=== PATIENT | female | born 1955 | race Caucasian/White ===

== ENCOUNTER 2016-05-27 13:07 | Emergency (ER) | payer SELFPAY ==
--- NOTE | 2016-05-27 13:47 | DIAGNOSTIC IMAGING REPORT ---
PROCEDURE: XR CHEST 2 VIEW INDICATION: CHEST PAIN TECHNIQUE: PA and lateral views. COMPARISON: Chest 09/16/2013 FINDINGS: Lungs are clear. Heart and mediastinum are normal. Thorax is normal. IMPRESSION: 1. Negative chest.
--- NOTE | 2016-05-27 14:04 | ED NURSING NOTES ---
Clinical Report - Nurses [facility] [address] [place] [address] 05/27/2016 13:09 Patient: SOCORRO BATISTA TRIAGE Triage time 13:16 May 27 2016. Acuity: LEVEL 4. Chief Complaint: (chest pain). --13:19 Cali Doe R.N. 13:16 05/27/16. BP: 122/72. HR: 116. RR: 18. O2 saturation: 99%. Temp: 98.3 F. Pain level now 01/21. --13:19 Cali Doe R.N. Weight: 63.5 kg stated. Height/Length: 64 inches Per Patient. BMI: 24. --13:18 Cali Doe R.N. Medications None. --13:17 Cali Doe R.N. Allergies No Known Drug Allergy. --13:18 Cali Doe R.N. History Arrived by private vehicle. ( Pt reports pain to L rib cage, rt reaching into the back seat of a truck for a coffee cup. Pain is worse when she coughs). Onset. (2 days). SOCIAL HX: Heavy tobacco smoker. No alcohol use or drug use. --13:19 Cali Doe R.N. PROBLEMS: Lumbar Strain. Lower Extremity Pain. Pyelonephritis. Vomiting. Dehydration. Pneumonia. LNMP - Last Normal Menstrual Period. --13:18 Cali Doe R.N. Sepsis [RuleOut]. --13:18 Cali Doe R.N. ADDITIONAL SURGERIES: Carpal Tunnel Surgery. . Laparoscopy. Lt elbow surgery. Tonsillectomy. --13:19 Cali Doe R.N. Interventions ID band on patient. To treatment room. --13:19 Cali Doe R.N. PHYSICAL ASSESSMENT GENERAL / NEURO / PSYCH: Alert. Oriented X 4. Appears in no acute distress. HEENT: Pupils equal, round and reactive to light. No facial asymmetry noted. Mucous membranes are pink. RESPIRATORY: Respirations not labored. Chest wall tenderness. CVS: Capillary refill less than 2 seconds. Pulses within normal limits. GI / : Abdomen soft and nontender and normal bowel sounds. SKIN: Skin is warm and dry. --13:19 Cali Doe R.N. NURSING PROGRESS NOTES Oxygen administered. Monitoring of patient in place. Patient gowned. Call light placed in reach. Side rails up x 1. Bed placed in lowest position. --13:20 Cali Doe R.N. Patient ready for evaluation- PA notified. --13:22 Cali Doe R.N. EKG time: (13:37 May 27 2016). EKG was performed by a nurse. --13:37 Cali Doe R.N. 14:08 05/27/2016 Motrin PO 800 mg given. Allergies verified and confirmed 5 rights. --14:08 Cali Doe R.N. 14:08 05/27/2016 Hydrocodone-APAP (Hydrocodone-Acetaminophen) PO 5/325 mg Tablets 1 tab given. Allergies verified, confirmed 5 rights and sedative warning given. --14:08 Cali Doe R.N. DISPOSITION / DISCHARGE Departure time: 14:May 27 2016. Condition at departure: improved. No learning barriers present. Discharge instructions provided and reviewed with the patient. Reviewed medication(s) information. Patient verbalized understanding. Written instructions provided in Estonian. The patient was discharged by the physician health center assistant. She was discharged home. She left the Emergency Department ambulatory and via private vehicle. --14:17 Cali Doe R.N. 14:15 05/27/16. BP: 103/79. HR: 93. RR: 20. O2 saturation: 99%. Temp: 98.6 F. Pain level now 9/10. --14:17 Cali Doe R.N. Locked/Released at 06/01/2016 16:15 by Cali Doe R.N.
--- NOTE | 2016-05-27 14:04 | ED ORDER SUMMARY ---
..... Patient: SOCORRO BATISTA OrderSheet [facility] VisitID: [id number] [address] [place] [address] 60y, F Registration Date/Time: 05/27/2016 ORDER SHEET Weight: 63.5 kg (stated) Allergies: No Known Drug Allergy GENERAL ORDERS: Chest 2V Urgent (13:05/27/2016 EKoroleva P.A.-C) (Ack 13:30 LTapper) EKG - ER Stat (13:05/27/2016 EKoroleva P.A.-C) (Ack 13:30 LTapper) MEDICATION ORDERS: Motrin PO 800 mg (NOW) (14:03 05/27/2016 EKoroleva P.A.-C) (14:08 DBeyer R.N.) Hydrocodone-APAP PO 5/325 mg (NOW, HIGH ALERT MEDICATION) (14:05/27/2016 EKoroleva P.A.-C) (14:08 DBeyer R.N.) IV FLUIDS: ORDER SHEET NOTES: [Electronically signed by Jina JuneAAngelia-C (15:18 05/27/2016)] [Electronically signed by Cali Doe R.N. (16:15 06/01/2016)] [Electronically locked/signed by Cali Doe R.N. (16:15 06/01/2016)]
--- NOTE | 2016-05-27 14:04 | ED ORDER SUMMARY ---
..... Patient: SOCORRO BATISTA OrderSheet [facility] VisitID: [id number] [address] [place] [address] 60y, F Registration Date/Time: 05/27/2016 ORDER SHEET Weight: 63.5 kg (stated) Allergies: No Known Drug Allergy GENERAL ORDERS: Chest 2V Urgent (13:05/27/2016 EKoroleva P.A.-C) (Ack 13:30 LTapper) EKG - ER Stat (13:05/27/2016 EKoroleva P.A.-C) (Ack 13:30 LTapper) MEDICATION ORDERS: Motrin PO 800 mg (NOW) (14:03 05/27/2016 EKoroleva P.A.-C) (14:08 DBeyer R.N.) Hydrocodone-APAP PO 5/325 mg (NOW, HIGH ALERT MEDICATION) (14:05/27/2016 EKoroleva P.A.-C) (14:08 DBeyer R.N.) IV FLUIDS: ORDER SHEET NOTES: [Electronically signed by Jina JuneAAngelia-C (15:18 05/27/2016)] [Electronically signed by Cali Doe R.N. (16:15 06/01/2016)] [Electronically locked/signed by Cali Doe R.N. (16:15 06/01/2016)]
--- NOTE | 2016-05-27 14:04 | ED CLINICAL REPORT ---
Clinical Report - Physicians/Mid Levels [facility] [address] [place] [address] 05/27/2016 13:09 Patient: SOCORRO BATISTA Time Seen: 13:28 May 27 2016. Arrived- By private vehicle. Historian- patient. HISTORY OF PRESENT ILLNESS Chief Complaint: CHEST PAIN. It is described as located in the left chest area. This started 3 days. No nausea, vomiting, difficulty breathing or diaphoresis. (she reports reaching for a coffee mug to her left side, and with her left arm and sustaining immediate pain to her left side. Pain worsens with movement. No direct fall or trauma. No shortness of breath or chest. History of cardiac problems. Patient is a smoker. Does not have a regular doctor. Denies any recent illness. Denies any direct trauma to the area. Denies nausea or vomiting. Denies history of PE.). REVIEW OF SYSTEMS No chills or cough. All systems otherwise negative, except as recorded above. PAST HISTORY No history of heart rhythm problems. Problems: Lumbar Strain. Lower Extremity Pain. Pyelonephritis. Vomiting. Dehydration. Pneumonia. LNMP - Last Normal Menstrual Period. Additional Surgeries: Carpal Tunnel Surgery. . Laparoscopy. Lt elbow surgery. Tonsillectomy. Medications: None. Allergies: No Known Drug Allergy. SOCIAL HISTORY Smoker- current status unknown. No alcohol use or drug use. ADDITIONAL NOTES The nursing notes have been reviewed. PHYSICAL EXAM Vital Signs: 05/27/2016 13:16 BP: 122/72. HR: 116. RR: 18. O2 saturation: 99%. Temp: 98.3 F. Appearance: Alert. No acute distress. Eyes: Eyes normal inspection. Neck: Normal inspection. No meningeal signs or lymphadenopathy. CVS: Normal heart rate and rhythm. Heart sounds normal. Respiratory: Chest pain reproducible with palpation of the lateral chest wall and ribs and with movement of the left arm. Chest pain is not reproduced by palpation of the sternum. No splinting. Abdomen: Soft and nontender. Back: Normal external inspection. No CVA tenderness. Extremities: Extremities exhibit normal ROM. LABS, X-RAYS, AND EKG EKG: EKG time: (1787). No acute process. No acute ischemia. Normal EKG. Rate: 102. Tachycardia. Normal P waves. Normal MYLENE. Normal QRS complex. Normal axis. Normal ST and T waves and QT. The study has been interpreted contemporaneously. The EKG appears to be a good tracing. Chest X-ray: (IMPRESSION: 1. Negative chest. Electronically Final signed by:Derian Sloan MD 05/27/2016 1:50:32 PM). PROGRESS AND PROCEDURES Course of Care: Reproducible pain post movement. Patient stable. No distress. Patient with no other cardiac symptoms. No shortness of breath. Tachycardia normalized. Patient is stable. Symptoms better. Patient/family counseled. Disposition: Discharged. CLINICAL IMPRESSION Atypical chest pain Acute posterior chest wall myofascial strain INSTRUCTIONS Prescription Medications: Hydrocodone/APAP 5mg / 325mg: take 1 orally every 6 hours. Dispense ten (10). No refill. Ibuprofen 800 mg tablets: take 1 tablet orally every 8 hours for 5 days, as needed for pain. Dispense fifteen (15). No refill. Follow-up: Follow up with your doctor in three days. (Electronically signed by Jina June P.A.-C 05/27/2016 15:18)
--- NOTE | 2016-05-27 14:04 | ED CLINICAL REPORT ---
Clinical Report - Physicians/Mid Levels [facility] [address] [place] [address] 05/27/2016 13:09 Patient: SOCORRO BATISTA Time Seen: 13:28 May 27 2016. Arrived- By private vehicle. Historian- patient. HISTORY OF PRESENT ILLNESS Chief Complaint: CHEST PAIN. It is described as located in the left chest area. This started 3 days. No nausea, vomiting, difficulty breathing or diaphoresis. (she reports reaching for a coffee mug to her left side, and with her left arm and sustaining immediate pain to her left side. Pain worsens with movement. No direct fall or trauma. No shortness of breath or chest. History of cardiac problems. Patient is a smoker. Does not have a regular doctor. Denies any recent illness. Denies any direct trauma to the area. Denies nausea or vomiting. Denies history of PE.). REVIEW OF SYSTEMS No chills or cough. All systems otherwise negative, except as recorded above. PAST HISTORY No history of heart rhythm problems. Problems: Lumbar Strain. Lower Extremity Pain. Pyelonephritis. Vomiting. Dehydration. Pneumonia. LNMP - Last Normal Menstrual Period. Additional Surgeries: Carpal Tunnel Surgery. . Laparoscopy. Lt elbow surgery. Tonsillectomy. Medications: None. Allergies: No Known Drug Allergy. SOCIAL HISTORY Smoker- current status unknown. No alcohol use or drug use. ADDITIONAL NOTES The nursing notes have been reviewed. PHYSICAL EXAM Vital Signs: 05/27/2016 13:16 BP: 122/72. HR: 116. RR: 18. O2 saturation: 99%. Temp: 98.3 F. Appearance: Alert. No acute distress. Eyes: Eyes normal inspection. Neck: Normal inspection. No meningeal signs or lymphadenopathy. CVS: Normal heart rate and rhythm. Heart sounds normal. Respiratory: Chest pain reproducible with palpation of the lateral chest wall and ribs and with movement of the left arm. Chest pain is not reproduced by palpation of the sternum. No splinting. Abdomen: Soft and nontender. Back: Normal external inspection. No CVA tenderness. Extremities: Extremities exhibit normal ROM. LABS, X-RAYS, AND EKG EKG: EKG time: (2447). No acute process. No acute ischemia. Normal EKG. Rate: 102. Tachycardia. Normal P waves. Normal MYLENE. Normal QRS complex. Normal axis. Normal ST and T waves and QT. The study has been interpreted contemporaneously. The EKG appears to be a good tracing. Chest X-ray: (IMPRESSION: 1. Negative chest. Electronically Final signed by:Derian Sloan MD 05/27/2016 1:50:32 PM). PROGRESS AND PROCEDURES Course of Care: Reproducible pain post movement. Patient stable. No distress. Patient with no other cardiac symptoms. No shortness of breath. Tachycardia normalized. Patient is stable. Symptoms better. Patient/family counseled. Disposition: Discharged. CLINICAL IMPRESSION Atypical chest pain Acute posterior chest wall myofascial strain INSTRUCTIONS Prescription Medications: Hydrocodone/APAP 5mg / 325mg: take 1 orally every 6 hours. Dispense ten (10). No refill. Ibuprofen 800 mg tablets: take 1 tablet orally every 8 hours for 5 days, as needed for pain. Dispense fifteen (15). No refill. Follow-up: Follow up with your doctor in three days. (Electronically signed by Jina June P.A.-C 05/27/2016 15:18)
--- NOTE | 2016-05-27 14:04 | ED NURSING NOTES ---
Clinical Report - Nurses [facility] [address] [place] [address] 05/27/2016 13:09 Patient: SOCORRO BATISTA TRIAGE Triage time 13:16 May 27 2016. Acuity: LEVEL 4. Chief Complaint: (chest pain). --13:19 Cali Doe R.N. 13:16 05/27/16. BP: 122/72. HR: 116. RR: 18. O2 saturation: 99%. Temp: 98.3 F. Pain level now 01/21. --13:19 Cali Doe R.N. Weight: 63.5 kg stated. Height/Length: 64 inches Per Patient. BMI: 24. --13:18 Cali Doe R.N. Medications None. --13:17 Cali Doe R.N. Allergies No Known Drug Allergy. --13:18 Cali Doe R.N. History Arrived by private vehicle. ( Pt reports pain to L rib cage, rt reaching into the back seat of a truck for a coffee cup. Pain is worse when she coughs). Onset. (2 days). SOCIAL HX: Heavy tobacco smoker. No alcohol use or drug use. --13:19 Cali Doe R.N. PROBLEMS: Lumbar Strain. Lower Extremity Pain. Pyelonephritis. Vomiting. Dehydration. Pneumonia. LNMP - Last Normal Menstrual Period. --13:18 Cali Doe R.N. Sepsis [RuleOut]. --13:18 Cali Doe R.N. ADDITIONAL SURGERIES: Carpal Tunnel Surgery. . Laparoscopy. Lt elbow surgery. Tonsillectomy. --13:19 Cali Doe R.N. Interventions ID band on patient. To treatment room. --13:19 Cali Doe R.N. PHYSICAL ASSESSMENT GENERAL / NEURO / PSYCH: Alert. Oriented X 4. Appears in no acute distress. HEENT: Pupils equal, round and reactive to light. No facial asymmetry noted. Mucous membranes are pink. RESPIRATORY: Respirations not labored. Chest wall tenderness. CVS: Capillary refill less than 2 seconds. Pulses within normal limits. GI / : Abdomen soft and nontender and normal bowel sounds. SKIN: Skin is warm and dry. --13:19 Cali Doe R.N. NURSING PROGRESS NOTES Oxygen administered. Monitoring of patient in place. Patient gowned. Call light placed in reach. Side rails up x 1. Bed placed in lowest position. --13:20 Cail Doe R.N. Patient ready for evaluation- PA notified. --13:22 Cali Doe R.N. EKG time: (13:37 May 27 2016). EKG was performed by a nurse. --13:37 Cali Doe R.N. 14:08 05/27/2016 Motrin PO 800 mg given. Allergies verified and confirmed 5 rights. --14:08 Cali Doe R.N. 14:08 05/27/2016 Hydrocodone-APAP (Hydrocodone-Acetaminophen) PO 5/325 mg Tablets 1 tab given. Allergies verified, confirmed 5 rights and sedative warning given. --14:08 Cali Doe R.N. DISPOSITION / DISCHARGE Departure time: 14:May 27 2016. Condition at departure: improved. No learning barriers present. Discharge instructions provided and reviewed with the patient. Reviewed medication(s) information. Patient verbalized understanding. Written instructions provided in Hungarian. The patient was discharged by the physician travel assistant. She was discharged home. She left the Emergency Department ambulatory and via private vehicle. --14:17 Cali Doe R.N. 14:15 05/27/16. BP: 103/79. HR: 93. RR: 20. O2 saturation: 99%. Temp: 98.6 F. Pain level now 9/10. --14:17 Cali Doe R.N. Locked/Released at 06/01/2016 16:15 by Cali Doe R.N.
--- NOTE | 2016-06-01 16:16 | ED DISCHARGE INSTRUCTIONS ---
Patient: SOCORRO BATISTA General Instructions [facility] VisitID: [id number] [address] [place] [address] 60y, F Registration Date/Time: 05/27/2016 Atypical chest pain Acute posterior chest wall myofascial strain INSTRUCTIONS Prescription Medications: Hydrocodone/APAP 5mg / 325mg: take 1 orally every 6 hours. Dispense ten (10). No refill. Ibuprofen 800 mg tablets: take 1 tablet orally every 8 hours for 5 days, as needed for pain. Dispense fifteen (15). No refill. Follow-up: Follow up with your doctor in three days. ADDITIONAL INFORMATION Chest Pain, Noncardiac Based on your visit today, the exact cause of your chest pain is not certain. Your condition does not seem serious and your pain does not appear to be coming from your heart. However, sometimes the signs of a serious problem take more time to appear. Therefore, please watch for the warning signs listed below. Home Care: Rest today and avoid strenuous activity. Take any prescribed medicine as directed. Follow Up with your doctor or this facility as instructed or if you do not start to feel better within 24 hours. Get Prompt Medical Attention if any of the following occur: A change in the type of pain: if it feels different, becomes more severe, lasts longer, or begins to spread into your shoulder, arm, neck, jaw or back Shortness of breath or increased pain with breathing Cough with dark colored sputum (phlegm) or blood Weakness, dizziness, or fainting Fever of 100.4F (38C) or higher, or as directed by your healthcare provider Swelling, pain or redness in one leg Chest Pain, Uncertain Cause Chest pain can happen for a number of reasons. Sometimes the cause can not be determined. If yourcondition does not seem serious, and your pain does not appear to be coming from your heart, your doctor may recommend watching it closely. Sometimes the signs of a serious problem take more time to appear. Therefore, watch for the warning signs listed below. Home care After your visit, follow these recommendations: Rest today and avoid strenuous activity. Take any prescribed medicine as directed. Follow-up care Follow up with your doctor or this facility as instructed or if you do not start to feel better within 24 hours. Call 911 Get immediate medical attention if any of the following occur: A change in the type of pain: if it feels different, becomes more severe, lasts longer, or begins to spread into your shoulder, arm, neck, jaw or back Shortness of breath or increased pain with breathing Weakness, dizziness, or fainting Rapid heart beat Get prompt medical attention Call your doctor right away if any of the following occur: Cough with dark colored sputum (phlegm) or blood Fever of 100.4F(38C) or higher, or as directed by your health care provider Swelling, pain or redness in one leg Muscle Strain,Extremity A MUSCLE STRAIN is a stretching and tearing of muscle fibers. This causes pain, especially with motion of that muscle. There may also be some swelling and bruising. Home Care: 1) Keep the injured area raised to reduce pain and swelling. This is especially important during the first 48 hours. 2) Make an ice pack (ice cubes in a plastic bag, wrapped in a towel) and apply for 20 minutes every 1-2 hours the first day. You should continue with ice packs 3-4 times a day for the second and third days. Unless otherwise instructed, on the fourth day you may begin hot soaks or hot packs (small towel soaked in hot water) 3-4 times a day while you gently exercise the involved area. 3) You may use acetaminophen (Tylenol) or ibuprofen (Motrin, Advil) to control pain, unless another medicine was prescribed. [ NOTE : If you have chronic liver or kidney disease or ever had a stomach ulcer or GI bleeding, talk with your doctor before using these medicines.] 4) For LEG STRAINS: If CRUTCHES have been recommended, do not bear full weight on the injured leg until you can do so without pain. You may return to sports when you are able to hop and run on the injured leg without pain. Follow Up with your doctor or this facility if you are not improving within the next five days. Get Prompt Medical Attention if any of the following occur: -- Fingers or toes become swollen, cold, blue, numb or tingly -- Pain or swelling increases Chest Strain A strain of the chest is due to stretching and tearing of the muscle fibers between the ribs. This may occur as a result of severe coughing, strenuous lifting or twisting injuries of the upper back. This usually causes increased pain with movement or deep breathing. This may take a few days to a few weeks to heal. Home Care: Rest. Avoid heavy lifting or strenuous exertion. Avoid any activity that causes pain. If you have a severe cough, use a cough syrup such as Robitussin DM (containing dextromethorphan) unless another cough medicine was prescribed. You may use acetaminophen (Tylenol) or ibuprofen (Motrin, Advil) to control pain, unless another medicine was prescribed. [ NOTE: If you have chronic liver or kidney disease or ever had a stomach ulcer or GI bleeding, talk with your doctor before using these medicines.] Follow Up with your doctor as directed. Get Prompt Medical Attention if any of the following occur: A change in the type of pain: if it feels different, becomes more severe, lasts longer, or begins to spread into your shoulder, arm, neck, jaw or back Shortness of breath or increased pain with breathing Cough with dark colored sputum (phlegm) or blood Weakness, dizziness, or fainting Fever of 100.4F (38C) or higher, or as directed by your healthcare provider Hydrocodone Bitartrate, Acetaminophen Oral tablet What is this medicine? ACETAMINOPHEN; HYDROCODONE (a set a GUI fransisca fen; gui droe KOE done) is a pain reliever. It is used to treat mild to moderate pain. How should I use this medicine? Take this medicine by mouth. Swallow it with a full glass of water. Follow the directions on the prescription label. If the medicine upsets your stomach, take the medicine with food or milk. Do not take more than you are told to take. Talk to your kiln setter regarding the use of this medicine in children. This medicine is not approved for use in children. What side effects may I notice from receiving this medicine? Side effects that you should report to your doctor or health residential child care counselor as soon as possible: allergic reactions like skin rash, itching or hives, swelling of the face, lips, or tongue breathing problems confusion feeling faint or lightheaded, falls stomach pain yellowing of the eyes or skin Side effects that usually do not require medical attention (report to your doctor or health residential child care counselor if they continue or are bothersome): nausea, vomiting stomach upset What may interact with this medicine? alcohol antihistamines isoniazid medicines for depression, anxiety, or psychotic disturbances medicines for sleep muscle relaxants naltrexone narcotic medicines (opiates) for pain phenobarbital ritonavir tramadol What if I miss a dose? If you miss a dose, take it as soon as you can. If it is almost time for your next dose, take only that dose. Do not take double or extra doses. Where should I keep my medicine? Keep out of the reach of children. This medicine can be abused. Keep your medicine in a safe place to protect it from theft. Do not share this medicine with anyone. Selling or giving away this medicine is dangerous and against the law. Store at room temperature between 15 and 30 degrees C (59 and 86 degrees F). Protect from light. Keep container tightly closed. Throw away any unused medicine after the expiration date. Discard unused medicine and used packaging carefully. Pets and children can be harmed if they find used or lost packages. What should I tell my health care provider before I take this medicine? They need to know if you have any of these conditions: brain tumor Crohn's disease, inflammatory bowel disease, or ulcerative colitis drink more than 3 alcohol-containing drinks per day drug abuse or addiction head injury heart or circulation problems kidney disease or problems going to the bathroom liver disease lung disease, asthma, or breathing problems an unusual or allergic reaction to acetaminophen, hydrocodone, other opioid analgesics, other medicines, foods, dyes, or preservatives or trying to get breast-feeding What should I watch for while using this medicine? Tell your doctor or health residential child care counselor if your pain does not go away, if it gets worse, or if you have new or a different type of pain. You may develop tolerance to the medicine. Tolerance means that you will need a higher dose of the medicine for pain relief. Tolerance is normal and is expected if you take the medicine for a long time. Do not suddenly stop taking your medicine because you may develop a severe reaction. Your body becomes used to the medicine. This does NOT mean you are addicted. Addiction is a behavior related to getting and using a drug for a non-medical reason. If you have pain, you have a medical reason to take pain medicine. Your doctor will tell you how much medicine to take. If your doctor wants you to stop the medicine, the dose will be slowly lowered over time to avoid any side effects. You may get drowsy or dizzy when you first start taking the medicine or change doses. Do not drive, use machinery, or do anything that may be dangerous until you know how the medicine affects you. Stand or sit up slowly. There are different types of narcotic medicines (opiates) for pain. If you take more than one type at the same time, you may have more side effects. Give your health care provider a list of all medicines you use. Your doctor will tell you how much medicine to take. Do not take more medicine than directed. Call emergency for help if you have problems breathing. The medicine will cause constipation. Try to have a bowel movement at least every 2 to 3 days. If you do not have a bowel movement for 3 days, call your doctor or health residential child care counselor. Too much acetaminophen can be very dangerous. Do not take Tylenol (acetaminophen) or medicines that contain acetaminophen with this medicine. Many non-prescription medicines contain acetaminophen. Always read the labels carefully. You have been given the following additional information: Chest Pain, Noncardiac Chest Pain, Uncertain Cause Muscle Strain, Extremity Chest Wall Strain Hydrocodone Bitartrate, Acetaminophen Oral tablet (Electronically signed by Jina June P.A.-C 05/27/2016 15:18)
--- NOTE | 2016-06-01 16:16 | ED MED RECONCILIATION SUMMARY ---
Patient: SOCORRO BATISTA Medication Reconciliation Report [facility] VisitID: [id number] [address] [place] [address] 60y, F Registration Date/Time: 05/27/2016 Weight: 63.5 kg Height/Length: 64 in. BMI: 24.0 ALLERGIES: No Known Drug Allergy The patient's Home Medications are listed below: NONE. The source(s) of the original Home Medication information: Not obtained. The following Medications were given to the patient in the Emergency Department: Motrin [PO] PO 800 mg, administered: 05/27/2016 2:08:00 PM Hydrocodone-APAP [PO] PO 1 tab, administered: 05/27/2016 2:08:00 PM The following Medications were prescribed to the patient: Hydrocodone/APAP 5mg / 325mg: take 1 orally every 6 hours. Dispense ten (10). No refill. -- Jina June, P.A.-C Ibuprofen 800 mg tablets: take 1 tablet orally every 8 hours for 5 days, as needed for pain. Dispense fifteen (15). No refill. -- Jina June, P.A.-C
--- NOTE | 2016-06-01 16:16 | ED MED RECONCILIATION SUMMARY ---
Patient: SOCORRO BATISTA Medication Reconciliation Report [facility] VisitID: [id number] [address] [place] [address] 60y, F Registration Date/Time: 05/27/2016 Weight: 63.5 kg Height/Length: 64 in. BMI: 24.0 ALLERGIES: No Known Drug Allergy The patient's Home Medications are listed below: NONE. The source(s) of the original Home Medication information: Not obtained. The following Medications were given to the patient in the Emergency Department: Motrin [PO] PO 800 mg, administered: 05/27/2016 2:08:00 PM Hydrocodone-APAP [PO] PO 1 tab, administered: 05/27/2016 2:08:00 PM The following Medications were prescribed to the patient: Hydrocodone/APAP 5mg / 325mg: take 1 orally every 6 hours. Dispense ten (10). No refill. -- Jina June, P.A.-C Ibuprofen 800 mg tablets: take 1 tablet orally every 8 hours for 5 days, as needed for pain. Dispense fifteen (15). No refill. -- Jina June, P.A.-C
--- NOTE | 2016-06-01 16:16 | ED MAR SUMMARY ---
..... Medication Administration Record [facility] [address] [place] [address] Patient: SOCORRO BATISTA Visit ID: [id number] 60y, F Weight: 63.5 kg Height/Length: 64 in BMI: 24 ALLERGIES: No Known Drug Allergy Given 14:05/27/2016 Cali Doe, RAngeliaNAngelia Medication Administered: MOTRIN [PO], Dose: 800 mg PO. Medication Ordered: Motrin PO 800 mg (NOW). Given 14:05/27/2016 Cali Doe, R.N. Medication Administered: HYDROCODONE-APAP [PO] (HYDROCODONE-ACETAMINOPHEN), Dose: 1 tab 5/325 mg Tablets PO. Medication Ordered: Hydrocodone-APAP PO 5/325 mg (NOW, HIGH ALERT MEDICATION).
--- NOTE | 2016-06-01 16:16 | ED MAR SUMMARY ---
..... Medication Administration Record [facility] [address] [place] [address] Patient: SOCORRO BATISTA Visit ID: [id number] 60y, F Weight: 63.5 kg Height/Length: 64 in BMI: 24 ALLERGIES: No Known Drug Allergy Given 14:05/27/2016 Cali Doe, RAngeliaNAngelia Medication Administered: MOTRIN [PO], Dose: 800 mg PO. Medication Ordered: Motrin PO 800 mg (NOW). Given 14:05/27/2016 Cali Doe, R.N. Medication Administered: HYDROCODONE-APAP [PO] (HYDROCODONE-ACETAMINOPHEN), Dose: 1 tab 5/325 mg Tablets PO. Medication Ordered: Hydrocodone-APAP PO 5/325 mg (NOW, HIGH ALERT MEDICATION).
== END 2016-05-27 14:15 | disposition home or self-care (01) ==
LOC: ED SRH 13:07
DX: S29.011A Strain of muscle and tendon of front wall of thorax, initial encounter (principal); X50.0XXA Overexertion from strenuous movement or load, initial encounter; Y93.9 Activity, unspecified; Y92.9 Unspecified place or not applicable; Y99.9 Unspecified external cause status; F17.210 Nicotine dependence, cigarettes, uncomplicated